=== PATIENT | male | born 1995 | race Hispanic/Latino ===

== ENCOUNTER 2020-08-14 01:02 | Emergency (ER) | payer MEDICAID, OTHER ==
[2020-08-14] MEDS ORDERED: PANTOPRAZOLE SODIUM 40 MG TABLET.DR ONE (01:37)
[2020-08-14] MEDS ORDERED: LIDOCAINE HCL 2% VISCOUS 15 ML UDCUP ONE (01:37)
[2020-08-14] MEDS ORDERED: MAG HYDROX/AL HYDROX/SIMETH ES 30 ML SUSP UDCUP ONE (01:37)
[2020-08-14] MEDS ORDERED: ONDANSETRON ODT 4 MG TAB ONE (01:38)
[2020-08-14 02:21] LABS: BASOPHILS % (AUTO) 0.5 % (0.0-5.0); EOSINOPHILS % (AUTO) 1.1 % (0.0-8.0); HEMATOCRIT 43.1 % (42-54); LYMPHOCYTES % (AUTO) 48.9 % (21.0-51.0); MEAN CORPUSCULAR HEMOGLOBIN 29.4 pg (27.0-33.0); MEAN CORPUSCULAR HGB CONC 35.5 g/dL (32.0-36.0); MEAN CORPUSCULAR VOLUME 82.9 fL (79-99); MONOCYTES % (AUTO) 6.6 % (3.0-13.0); NEUTROPHILS % (AUTO) 42.6 % (40.0-77.0); PLATELET COUNT (AUTO) 209 K/uL (130-400); RED CELL DISTRIBUTION WIDTH 12.4 % (11.0-15.5); WHITE BLOOD COUNT (AUTO) 6.5 K/uL (4.8-10.8)
[2020-08-14 02:38] LABS: CREATININE 0.9 mg/dL (0.5-1.5); POTASSIUM 3.4 mmol/L (3.5-5.1)
[2020-08-14 02:39] LABS: INR 0.95 (0.85-1.15); PARTIAL THROMBOPLASTIN TIME 26.9 SEC (26.3-35.5); PROTHROMBIN TIME 10.3 SEC (9.6-11.6)
[2020-08-14 02:42] LABS: ALBUMIN 4.2 g/dL (3.5-5.0); BILIRUBIN,TOTAL 0.4 mg/dL (0.2-1.0)
== END 2020-08-14 03:42 | disposition home or self-care (01) ==
LOC: EDH 01:02
DX: R06.00 Dyspnea, unspecified (principal); F43.0 Acute stress reaction; F41.9 Anxiety disorder, unspecified; E11.9 Type 2 diabetes mellitus without complications; Z88.0 Allergy status to penicillin; Z88.2 Allergy status to sulfonamides
CPT/HCPCS: 36415; 71046; 80053; 83690; 84484; 85025; 85610; 85730; 93005

== ENCOUNTER 2022-10-10 21:25 | Emergency (ER) | payer OTHER ==
[~2022-10-10] VITALS: Ht 182.9 cm; Wt 125.2 kg
[2022-10-10 21:39] VITALS: BP 151/88
[2022-10-10 23:11] LABS: BASOPHILS % (AUTO) 0.5 % (0.0-5.0); EOSINOPHILS % (AUTO) 0.8 % (0.0-8.0); HEMATOCRIT 46.4 % (42-54); LYMPHOCYTES % (AUTO) 33.3 % (21.0-51.0); MEAN CORPUSCULAR HEMOGLOBIN 28.6 pg (27.0-33.0); MEAN CORPUSCULAR HGB CONC 34.3 g/dL (32.0-36.0); MEAN CORPUSCULAR VOLUME 83.6 fL (79-99); MONOCYTES % (AUTO) 7.5 % (3.0-13.0); NEUTROPHILS % (AUTO) 57.5 % (40.0-77.0); PLATELET COUNT (AUTO) 272 K/uL (130-400); RED BLOOD CELL COUNT(AUTO) 5.55 MIL/uL (4.50-6.20); WHITE BLOOD COUNT (AUTO) 8.4 K/uL (4.8-10.8)
[2022-10-10] MEDS ORDERED: SULF1TAB42 PO (23:17)
[2022-10-10] MEDS ORDERED: CEPH500B PO (23:17)
[2022-10-10] MEDS ORDERED: LIDOCAINE HCL 1% 20 ML VIAL INJ SCH (23:30)
[2022-10-10 23:35] LABS: CREATININE 0.8 mg/dL (0.5-1.5); POTASSIUM 3.8 mmol/L (3.5-5.1)
[2022-10-10 23:39] LABS: ALBUMIN 4.1 g/dL (3.5-5.0); TOTAL PROTEIN, SERUM 8.4 g/dL (6.0-8.3)
== END 2022-10-10 23:53 | disposition home or self-care (01) ==
LOC: EDH 21:25
DX: L02.211 Cutaneous abscess of abdominal wall (principal); E11.9 Type 2 diabetes mellitus without complications; E78.00 Pure hypercholesterolemia, unspecified
CPT/HCPCS: 10060; 36415; 74176; 80053; 85025

== ENCOUNTER 2023-05-15 15:56 | Emergency (ER) | payer OTHER ==
[~2023-05-15] VITALS: Ht 182.9 cm; Wt 126.6 kg
[~2023-05-15 15:56] MED LIST: CEPH500B PO; SULF1TAB42 PO
[2023-05-15 16:27] LABS: BASOPHILS % (AUTO) 0.6 % (0.0-5.0); EOSINOPHILS % (AUTO) 0.8 % (0.0-8.0); LYMPHOCYTES % (AUTO) 43.4 % (21.0-51.0); MEAN CORPUSCULAR HEMOGLOBIN 29.1 pg (27.0-33.0); MEAN CORPUSCULAR HGB CONC 34.6 g/dL (32.0-36.0); MEAN CORPUSCULAR VOLUME 84.2 fL (79-99); MONOCYTES % (AUTO) 6.9 % (3.0-13.0); PLATELET COUNT (AUTO) 234 K/uL (130-400); RED BLOOD CELL COUNT(AUTO) 5.46 MIL/uL (4.50-6.20); RED CELL DISTRIBUTION WIDTH 12.1 % (11.0-15.5); WHITE BLOOD COUNT (AUTO) 7.2 K/uL (4.8-10.8)
[2023-05-15 16:40] LABS: APPEARANCE,URINE CLEAR (CLEAR); BILIRUBIN,URINE NEGATIVE (NEGATIVE); COLOR,URINE LIGHT-YELLOW (YELLOW); GLUCOSE, URINE (UA) >=1000 mg/dL (NEGATIVE); KETONES,URINE NEGATIVE (NEGATIVE); LEUKOCYTE ESTERASE ,URINE NEGATIVE Leu/uL (NEGATIVE); NITRATE,URINE NEGATIVE (NEGATIVE); OCCULT BLOOD,URINE NEGATIVE (NEGATIVE); PH,URINE 6.5 (5.0-8.0); PROTEIN,URINE NEGATIVE (NEGATIVE); UROBILINOGEN,URINE 0.2 mg/dL (0.2-1.0)
[2023-05-15 16:43] LABS: RBC,URINE 0-1 /HPF (0-1); SQUAMOUS EPITHELIAL CELL,UR RARE /HPF (0-2); WBC,URINE 0-1 /HPF (0-1)
[2023-05-15 16:47] LABS: CREATININE 0.8 mg/dL (0.5-1.5); POTASSIUM 3.9 mmol/L (3.5-5.1)
[2023-05-15 16:56] LABS: ALBUMIN 3.9 g/dL (3.5-5.0); MAGNESIUM 1.7 mg/dL (1.80-2.40); TOTAL PROTEIN, SERUM 8.1 g/dL (6.0-8.3)
[2023-05-15] MEDS ORDERED: MAGNESIUM OXIDE 400 MG TABLET PO SCH (18:30)
[2023-05-15] MEDS ORDERED: KETOROLAC 60 MG VIAL (30MG/ML) IM SCH (18:30)
[2023-05-15] MEDS ORDERED: IBUP-2076 PO (21:29)
[2023-05-15 21:36] VITALS: BP 145/74; PULSE 85; RESP 17; O2SAT 96
== END 2023-05-15 21:51 | disposition home or self-care (01) ==
LOC: EDH 15:56
DX: B34.9 Viral infection, unspecified (principal); R07.89 Other chest pain; E11.9 Type 2 diabetes mellitus without complications; E78.00 Pure hypercholesterolemia, unspecified; E66.9 Obesity, unspecified; Z68.37 Body mass index [BMI] 37.0-37.9, adult
CPT/HCPCS: 99285; 71045; 83735; 84484 ×2; 80053; 85025; 87804 ×2; 81001; 36415; 96372; 93005; J1885

== ENCOUNTER 2023-07-07 19:45 | Emergency (ER) | payer OTHER ==
[~2023-07-07] VITALS: Ht 182.9 cm; Wt 122.9 kg
[~2023-07-07 19:45] MED LIST changes: +IBUP-2076 PO
[2023-07-07 20:07] VITALS: BP 139/86; PULSE 79; RESP 18; O2SAT 98
[2023-07-07 21:08] LABS: BASOPHILS # (AUTO) 0.03 K/uL (0.00-0.20); BASOPHILS % (AUTO) 0.4 % (0.0-5.0); EOSINOPHILS # (AUTO) 0.07 K/uL (0.00-0.70); HEMATOCRIT 46.4 % (42-54); IMMATURE GRANULOCYTE ABSOLUTE 0.01 K/uL (0-1); LYMPHOCYTES # (AUTO) 2.5 K/uL (1.0-4.8); LYMPHOCYTES % (AUTO) 36.1 % (21.0-51.0); MEAN CORPUSCULAR HEMOGLOBIN 29.6 pg (27.0-33.0); MEAN CORPUSCULAR HGB CONC 35.1 g/dL (32.0-36.0); MEAN CORPUSCULAR VOLUME 84.2 fL (79-99); MONOCYTES # (AUTO) 0.5 K/uL (0.1-1.0); MONOCYTES % (AUTO) 7.5 % (3.0-13.0); NEUTROPHILS # (AUTO) 3.8 K/uL (1.8-7.7); NEUTROPHILS % (AUTO) 54.9 % (40.0-77.0); PLATELET COUNT (AUTO) 200 K/uL (130-400); RED BLOOD CELL COUNT(AUTO) 5.51 MIL/uL (4.50-6.20); RED CELL DISTRIBUTION WIDTH 12.2 % (11.0-15.5); WHITE BLOOD COUNT (AUTO) 6.9 K/uL (4.8-10.8)
[2023-07-07] MEDS ORDERED: CEPH500B PO (21:12)
[2023-07-07] MEDS ORDERED: SULF1TAB42 PO (21:12)
[2023-07-07] MEDS ORDERED: IBUP-2070 PO (21:13)
[2023-07-07 21:17] LABS: CREATININE 0.8 mg/dL (0.5-1.5); POTASSIUM 3.7 mmol/L (3.5-5.1)
[2023-07-07 21:22] LABS: BILIRUBIN,TOTAL 0.4 mg/dL (0.2-1.0); TOTAL PROTEIN, SERUM 8.2 g/dL (6.0-8.3)
[2023-07-07] MEDS ORDERED: INSULIN HUMULIN R 100 UNIT/ML 3ML ONE (21:27)
[2023-07-07] MEDS ORDERED: INSULIN HUMULIN R 100 UNIT/ML 3ML SQ ONE (21:30)
[2023-07-07 22:22] LABS: ERYTHROCYTE SEDIMENTATION RATE 15 MM/HR (0-15)
== END 2023-07-07 22:55 | disposition home or self-care (01) ==
LOC: EDH 19:45
DX: L03.116 Cellulitis of left lower limb (principal); I10 Essential (primary) hypertension; E11.9 Type 2 diabetes mellitus without complications; Z79.899 Other long term (current) drug therapy
CPT/HCPCS: 99284; 80053; 85025; 85651; 83605; 36415; 73552; 96372; J1815

== ENCOUNTER 2023-10-06 06:55 | Emergency (ER) | payer OTHER ==
[~2023-10-06] VITALS: Ht 182.9 cm; Wt 124.7 kg
[~2023-10-06 06:55] MED LIST changes: +IBUP-2070 PO
[2023-10-06] MEDS ORDERED: LACTATED RINGERS 1000ML 1,000 ML IV ONE (08:30)
[2023-10-06] MEDS ORDERED: METOCLOPRAMIDE 10 MG/2 ML VIAL IVP ONE (08:30)
[2023-10-06 08:41] LABS: BASOPHILS # (AUTO) 0.03 K/uL (0.00-0.20); BASOPHILS % (AUTO) 0.5 % (0.0-5.0); EOSINOPHILS # (AUTO) 0.04 K/uL (0.00-0.70); EOSINOPHILS % (AUTO) 0.7 % (0.0-8.0); HEMATOCRIT 44.6 % (42-54); IMMATURE GRANULOCYTE ABSOLUTE 0.01 K/uL (0-1); LYMPHOCYTES # (AUTO) 2.4 K/uL (1.0-4.8); MEAN CORPUSCULAR HEMOGLOBIN 29.9 pg (27.0-33.0); MEAN CORPUSCULAR HGB CONC 34.8 g/dL (32.0-36.0); MEAN CORPUSCULAR VOLUME 85.9 fL (79-99); MONOCYTES # (AUTO) 0.3 K/uL (0.1-1.0); MONOCYTES % (AUTO) 6.1 % (3.0-13.0); NEUTROPHILS # (AUTO) 2.8 K/uL (1.8-7.7); NEUTROPHILS % (AUTO) 50.5 % (40.0-77.0); PLATELET COUNT (AUTO) 197 K/uL (130-400); RED BLOOD CELL COUNT(AUTO) 5.19 MIL/uL (4.50-6.20); RED CELL DISTRIBUTION WIDTH 12.7 % (11.0-15.5); WHITE BLOOD COUNT (AUTO) 5.6 K/uL (4.8-10.8)
[2023-10-06 09:01] LABS: ALBUMIN 3.9 g/dL (3.5-5.0); BILIRUBIN,TOTAL 0.2 mg/dL (0.2-1.0); CREATININE 0.7 mg/dL (0.5-1.5); POTASSIUM 3.9 mmol/L (3.5-5.1); TOTAL PROTEIN, SERUM 7.3 g/dL (6.0-8.3)
[2023-10-06 09:08] LABS: MAGNESIUM 1.8 mg/dL (1.80-2.40); THYROID STIMULATING HORMONE 1.88 uIU/mL (0.36-3.74)
[2023-10-06 09:30] LABS: APPEARANCE,URINE CLEAR (CLEAR); BILIRUBIN,URINE NEGATIVE (NEGATIVE); COLOR,URINE COLORLESS (YELLOW); GLUCOSE, URINE (UA) >=1000 mg/dL (NEGATIVE); KETONES,URINE NEGATIVE (NEGATIVE); LEUKOCYTE ESTERASE ,URINE NEGATIVE Leu/uL (NEGATIVE); NITRATE,URINE NEGATIVE (NEGATIVE); OCCULT BLOOD,URINE NEGATIVE (NEGATIVE); PH,URINE 6.5 (5.0-8.0); PROTEIN,URINE NEGATIVE (NEGATIVE); UROBILINOGEN,URINE 0.2 mg/dL (0.2-1.0)
[2023-10-06 09:34] LABS: ADD UA MICROSCOPIC YES
[2023-10-06 09:38] LABS: BACTERIA,URINE RARE /HPF (None Seen); RBC,URINE 0-1 /HPF (0-1); SQUAMOUS EPITHELIAL CELL,UR RARE /HPF (0-2); WBC,URINE 0-1 /HPF (0-1)
[2023-10-06 10:30] VITALS: BP 140/76; PULSE 66; RESP 16; O2SAT 97
[2023-10-06] MEDS ORDERED: POLY17PO4 PO (10:57)
[2023-10-06] MEDS ORDERED: METO-296 PO (10:57)
== END 2023-10-06 11:14 | disposition home or self-care (01) ==
LOC: EDH 06:55
DX: K59.00 Constipation, unspecified (principal); E78.00 Pure hypercholesterolemia, unspecified; Z79.899 Other long term (current) drug therapy; Z98.890 Other specified postprocedural states
CPT/HCPCS: 99284; 96374; 96361; 84443; 83735; 80053; 83690; 85025; 81001; 36415; 74021; J7120; J2765

== ENCOUNTER 2023-11-16 12:56 | Emergency (ER) | payer OTHER ==
[~2023-11-16] VITALS: Ht 182.9 cm; Wt 122.5 kg
[~2023-11-16 12:56] MED LIST changes: +METO-296 PO; +POLY17PO4 PO
[2023-11-16 13:51] VITALS: BP 123/79; PULSE 88; RESP 14
[2023-11-16 14:16] LABS: RAPID GROUP A STREP negative (NEGATIVE)
[2023-11-16 14:30] LABS: INFLUENZA TYPE A Negative For Type A (NEGATIVE); INFLUENZA TYPE B Negative For Type B (NEGATIVE)
[2023-11-16 15:30] LABS: SARS-CoV-2, RNA, NAAT POSITIVE SARS CoV-2 (NEGATIVE)
[2023-11-16] MEDS ORDERED: BENZ-39 PO (16:21)
== END 2023-11-16 16:35 | disposition home or self-care (01) ==
LOC: EDH 12:56
DX: U07.1 COVID-19 (principal); E11.9 Type 2 diabetes mellitus without complications; E78.00 Pure hypercholesterolemia, unspecified; Z79.899 Other long term (current) drug therapy; Z98.890 Other specified postprocedural states
CPT/HCPCS: 87635; 87804; 87880

== ENCOUNTER 2025-04-04 20:46 | Emergency (ER) | payer BC ==
[~2025-04-04] VITALS: Ht 182.9 cm; Wt 124.7 kg
[~2025-04-04 20:46] MED LIST changes: +BENZ-39 PO
--- NOTE | 2025-04-04 20:53 | ERN ---
ED Note History of Present Illness Stated Complaint: HEADACHE, CHILLS, NAUSEA Chief Complaint: Flu Symptoms Time Seen by MD: 20:50 Time Seen by Midlevel: 20:50 Dictation: Mr. Lima is a 29 year old male with history of obesity, hyperlipidemia, and type II DM presented to the emergency department this evening for evaluation of flu symptoms. He states that approximately an hour after he got to work this evening he developed sudden onset of fatigue, general weakness, headache, nausea, and dizziness. He states that he feels dehydrated. He states that he has been tired all day with decreased appetite. He Denies fever, chills, shortness of breath, cough, chest pain, palpitations, edema, abdominal pain, vomiting, hematemesis, constipation, diarrhea, melena, hematochezia, dysuria,or focal weakness/paresthesia Allergies: Coded Allergies: Penicillins (Unverified Allergy, Unknown, 04/04/25) Sulfa (Sulfonamide Antibiotics) (Unverified Allergy, Unknown, 04/04/25) Home Meds Active Scripts Benzonatate (Tessalon Perles) 100 Mg Cap, 100 MG PO TID PRN for COUGH, #30 CAP Prov:YAYO WILLARD COMPUTER OPERATIONS SPECIALIST 11/16/23 Polyethylene Glycol 3350 (Miralax) 17 Gram Powd.pack, 17 GM PO DAILYDINNER for constipation, #30 PACKET 2 Refills Prov:MADELINE MCDOWELL Sr., MD 10/06/23 Metoclopramide HCl (Reglan) 10 Mg Tablet, 10 MG PO QID, #120 TAB 2 Refills Prov:MADELINE MCDOWELL Sr., MD 10/06/23 Ibuprofen (Ibuprofen) 600 Mg Tablet, 600 MG PO Q6H PRN for PAIN, #30 TAB Prov:BELINDA GUO 07/07/23 Cephalexin Monohydrate (Keflex) 500 Mg Cap, 500 MG PO QID for 7 Days, #28 CAP Prov:BELINDA GUO 07/07/23 Sulfamethoxazole/Trimethoprim (Bactrim Ds Tablet) 800 Mg-160 Mg Tablet, 1 TAB PO BID for 7 Days, #14 TAB 0 Refills Prov:BELINDA GUO 07/07/23 Ibuprofen (Ibuprofen) 400 Mg Tablet, 400 MG PO TID for body aches, #15 TAB 0 Refills Prov:LUDWIG SWARTZ COMPUTER OPERATIONS SPECIALIST 05/15/23 Sulfamethoxazole/Trimethoprim (Bactrim Ds Tablet) 1 Each Tablet, 1 TAB PO BID for 7 Days, #14 TAB 0 Refills Prov:BELINDA GUO V PATTERN GRADER CUTTER 10/10/22 Cephalexin Monohydrate (Keflex) 500 Mg Cap, 500 MG PO QID for 7 Days, #28 CAP Prov:BELINDA GUO V PATTERN GRADER CUTTER 10/10/22 Past Medical History Past Medical History: Diabetes-Type II, High Cholesterol Surgical History: Other Surgical History Other: LEFT EAR PSYCH History: no pertinent psych hx Family History: HTN Social History: Lives with family RN Note Reviewed/Agreed w/PFSH: Yes Review of System Dictation REVIEW OF SYSTEMS: CONSTITUTIONAL: Patient denies fevers, chills, sweats and weight changes. Reports fatigue and general weakness. He states that he feels dehydrated. EYES: Patient denies any visual symptoms. EARS, NOSE, AND THROAT: No difficulties with hearing. No symptoms of rhinitis or sore throat. CARDIOVASCULAR: Patient denies chest pains, palpitations, orthopnea and paroxysmal nocturnal dyspnea. RESPIRATORY: No dyspnea on exertion, no wheezing or cough. GI: No nausea, vomiting, diarrhea, constipation, abdominal pain, hematochezia or melena. Reported nausea and decreased appetite. : No urinary hesitancy or dribbling. No nocturia or urinary frequency. No abnormal urethral discharge. MUSCULOSKELETAL: No myalgias or arthralgias. NEUROLOGIC: No chronic headaches, no seizures. Patient denies numbness, tingling or weakness. Reports feeling dizzy. PSYCHIATRIC: Patient denies problems with mood disturbance. No problems with anxiety. ENDOCRINE: No excessive urination or excessive thirst. DERMATOLOGIC: Patient denies any rashes or skin changes Initial Vital Sign VS Vital Signs Date Time Temp Pulse Resp B/P (MAP) Pulse Ox O2 Delivery O2 Flow Rate FiO2 04/04/25 20:48 98.1 82 16 154/100 100 Room Air Physical Exam Dictation Vital signs: Reviewed. Afebrile Constitutional: No acute distress. Non-toxic appearing. Head/Face: Normocephalic, atraumatic. Eyes: Periorbital areas with no swelling, redness, or edema. Lids and lashes are normal. Conjunctival injection is absent. Sclera anicteric. Pupils equal, round, reactive to light. ENT: Pinnas intact and no signs of trauma or erythema. Ear canals clear and no discharge. TMs no erythema. No nasal discharge or bleeding noted. Oropharynx with no exudate, redness, swelling, masses, exudates, or evidence of obstruction. Uvula midline. Mucous membranes dry. Neck: Trachea midline, no masses palpated, and no cervical lymphadenopathy. No swelling. Supple, full range of motion. Chest/Axilla: No tenderness, no crepitus, no paradoxical movement, no retractions. Cardiovascular: Regular rate, regular rhythm, no murmur, no gallops. Symmetric pulses. No peripheral edema. Respiratory: Respirations even and unlabored. Lung sounds clear; no wheezes, rales or rhonchi. Room air SpO2 100% Gastrointestinal: Obese No distention is appreciated. Bowel sounds are normal. No mass or organomegaly . There is no tenderness. No rebound. No rigidity. No voluntary or involuntary guarding. No Shoemaker's sign. Neurological: Normal speech, gross motor function intact, gross sensory function intact. No focal weakness/Paresthesia. Musculoskeletal/Extremities: All extremities have full range of motion, no pain or tenderness on palpation. Symmetric pulses. Integumentary: Intact. Skin is normal color, warm and dry. Cap refill less than 2 seconds. Results (Laboratory/Radiology) Laboratory/Radiology Laboratory Tests Test 04/04/25 21:04 04/04/25 21:16 Influenza Type A Antigen Negative For Type A Influenza Type B Antigen Negative For Type B SARS-CoV-2, RNA, NAAT NEGATIVE SARS CoV-2 Group A Streptococcus Rapid negative (NEGATIVE) White Blood Count 6.6 K/uL (4.8-10.8) Red Blood Count 5.24 MIL/uL (4.50-6.20) Hemoglobin 15.7 g/dL (14.0-18.0) Hematocrit 44.4 % (42-54) Mean Corpuscular Volume 84.7 fL (79-99) Mean Corpuscular Hemoglobin 30.0 pg (27.0-33.0) Mean Corpuscular Hemoglobin Concent 35.4 g/dL (32.0-36.0) Red Cell Distribution Width 12.4 % (11.0-15.5) Platelet Count 186 K/uL (130-400) Mean Platelet Volume 11.0 fL (7.5-10.5) H Immature Granulocyte % (Auto) 0.5 % (0-1) Neutrophils (%) (Auto) 55.7 % (40.0-77.0) Lymphocytes (%) (Auto) 36.0 % (21.0-51.0) Monocytes (%) (Auto) 6.4 % (3.0-13.0) Eosinophils (%) (Auto) 0.9 % (0.0-8.0) Basophils (%) (Auto) 0.5 % (0.0-5.0) Neutrophils # (Auto) 3.7 K/uL (1.8-7.7) Lymphocytes # (Auto) 2.4 K/uL (1.0-4.8) Monocytes # (Auto) 0.4 K/uL (0.1-1.0) Eosinophils # (Auto) 0.06 K/uL (0.00-0.70) Basophils # (Auto) 0.03 K/uL (0.00-0.20) Absolute Immature Granulocyte (auto 0.03 K/uL (0-1) Nucleated Red Blood Cells 0.0 % (0.0-0.19) Urine Color LIGHT-YELLOW (YELLOW) Urine Appearance CLEAR (CLEAR) Urine pH 6.0 (5.0-8.0) Urine Specific [place] 1.046 (1.001-1.031) Urine Protein NEGATIVE mg/dL (NEGATIVE) Urine Glucose (UA) >=1000 mg/dL (NEGATIVE) H Urine Ketones NEGATIVE mg/dL (NEGATIVE) Urine Occult Blood NEGATIVE (NEGATIVE) Urine Nitrate NEGATIVE (NEGATIVE) Urine Bilirubin NEGATIVE mg/dL (NEGATIVE) Urine Urobilinogen 0.2 mg/dL (0.2-1.0) Urine Leukocyte Esterase NEGATIVE Alea/uL Urine RBC 0-1 /HPF (0-1) Urine WBC 0-1 /HPF (0-1) Urine Squamous Epithelial Cells RARE /HPF (0-2) Urine Bacteria None /HPF (None Seen) Urine Yeast RARE /HPF (None Seen) Sodium Level 134 mmol/L (136-145) L Potassium Level 4.0 mmol/L (3.5-5.1) Chloride Level 95 mmol/L (101-111) L Carbon Dioxide Level 31 mmol/L (21-32) Blood Urea Nitrogen 17 mg/dL (7-18) Creatinine 0.8 mg/dL (0.5-1.3) Glomerular Filtration Rate Calc 124 mL/min (>90) Random Glucose 276 mg/dL (70-105) H Total Calcium 8.9 mg/dL (8.5-10.1) Labs Reviewed?: Yes ED Course ED Course Orders Procedure Category Date Status Time Influenza Type A & B, LAB 04/04/25 Complete Rapid 20:51 Covid Rna Naat LAB 04/04/25 Complete 20:51 Rapid (Group A Strep) LAB 04/04/25 Complete 20:51 Cbc With Differential LAB 04/04/25 Complete 20:58 Basic Metabolic Panel LAB 04/04/25 Complete 20:58 Urinalysis Profile LAB 04/04/25 Complete 20:58 Ondansetron 4mg Inj PHA 04/04/25 Complete (Zofran 4mg Inj) 22:30 Ketorolac PHA 04/04/25 Complete Tromethamine 30mg/Ml 22:30 0.9%Nacl 1000ml (Ns PHA 04/04/25 Complete 1000ml) 22:30 Current Medications Medications (Trade) Dose Ordered Sig/Aashish Route PRN Reason Start Time Stop Time Status Last Admin Dose Admin Ketorolac Tromethamine (toRADol) 30 mg ONCE ONCE IVP 04/04/25 22:30 04/04/25 22:31 DC 04/04/25 22:23 Ondansetron HCl (zoFRAN 4MG INJ) 4 mg ONCE ONCE IVP 04/04/25 22:30 04/04/25 22:31 DC 04/04/25 22:23 Sodium Chloride 1,000 ml @ 0 mls/hr ONCE ONCE IV 04/04/25 22:30 04/04/25 22:31 DC 04/04/25 22:23 Vital Signs Date Time Temp Pulse Resp B/P (MAP) Pulse Ox O2 Delivery O2 Flow Rate FiO2 04/04/25 20:48 98.1 82 16 154/100 100 Room Air Uneventful ED course. Vital signs are stable; afebrile. Laboratory findings as noted below. Strep, COVID, and flu are negative. No elevation of WBCs. H&H are stable. Na/Cl 134/95 and glucose 276. While in the ED he received doses Toradol, Zofran, and NS 1000 mL IV as bolus. Discussed findings with patient and answered all questions. Medical Decision Making MDM MDM: Differential diagnosis: Gastroenteritis, viral illness, electrolyte derangement, dehydration, flu, COVID Rationale: Tests considered and ordered secondary to shared decision making include: Previous outside records reviewed: Old ER visits. Risk of complication and/or morbidity or mortality of patient management: None Medications-Per medication reconciliation Need for hospitalization: Patient does not meet criteria for hospitalization. Need for emergency major/minor surgery: No There are no social concerns with this patient. Prescription drug management: Zofran ODT Prescriptions will include symptomatic care Patient's prior external medical records from other ER visits were reviewed by me as indicated. Prior testing and results from previous visits were reviewed. Prior tests were taken into account with medical decision making and resource utilization, independent historian/historians were used to obtain complete medical history. I independently interpreted the test that were performed, results were reviewed by me and considered findings on radiology if ordered. Medical management and examination interpretation discussions were had by me with other qualified healthcare professionals as indicated for the patient's care. DX & DISP Disposition: Discharge Departure Impression: Primary Impression: Viral illness Additional Impression: Mild dehydration Condition: Stable Scripts Ondansetron (Ondansetron Odt) 4 Mg Tab.rapdis 4 MG PO Q6HPRN PRN for nausea, #15 TAB 0 Refills Prov: LUDWIG SWARTZ COMPUTER OPERATIONS SPECIALIST 04/04/25 Additional Instructions: Likely have a viral illness, which will can cause symptoms like nausea, fatigue, and poor appetite. Your labs are reassuring and your urine test showed no sign of infection. Your elevated blood sugar is likely due to illness related stress and dehydration. Continue to monitor your blood sugar closely, especially when you are not eating normally. Drink frequent small sips of water, electrolyte solutions or broth. Try bland foods like crackers, toast, rice, bananas, or applesauce as tolerated. Rest and allow your body time to recover. Take your usual diabetes medications. Monitor your blood sugar more frequently while sick; every 4-6 hours if possible. Return to the emergency department if you are unable to keep fluids down for more than 24 hours. Have dizziness, confusion, or weakness. Have signs of high blood sugar/DKA: Abdominal pain, vomiting, rapid breathing. Follow up with your primary care provider in the few days. Referrals: SELF,REFERRAL (PCP) Time of Disposition: 22:37 LUDWIG SWARTZ NP Apr 04, 2025 20:53
[2025-04-04 21:34] LABS: APPEARANCE,URINE CLEAR (CLEAR); BASOPHILS # (AUTO) 0.03 K/uL (0.00-0.20); BASOPHILS % (AUTO) 0.5 % (0.0-5.0); BILIRUBIN,URINE NEGATIVE (NEGATIVE); COLOR,URINE LIGHT-YELLOW (YELLOW); EOSINOPHILS # (AUTO) 0.06 K/uL (0.00-0.70); EOSINOPHILS % (AUTO) 0.9 % (0.0-8.0); GLUCOSE, URINE (UA) >=1000 mg/dL (NEGATIVE); HEMATOCRIT 44.4 % (42-54); IMMATURE GRANULOCYTE ABSOLUTE 0.03 K/uL (0-1); KETONES,URINE NEGATIVE (NEGATIVE); LEUKOCYTE ESTERASE ,URINE NEGATIVE Leu/uL (NEGATIVE); LYMPHOCYTES # (AUTO) 2.4 K/uL (1.0-4.8); MEAN CORPUSCULAR HGB CONC 35.4 g/dL (32.0-36.0); MEAN CORPUSCULAR VOLUME 84.7 fL (79-99); MONOCYTES # (AUTO) 0.4 K/uL (0.1-1.0); MONOCYTES % (AUTO) 6.4 % (3.0-13.0); NEUTROPHILS # (AUTO) 3.7 K/uL (1.8-7.7); NEUTROPHILS % (AUTO) 55.7 % (40.0-77.0); NITRATE,URINE NEGATIVE (NEGATIVE); OCCULT BLOOD,URINE NEGATIVE (NEGATIVE); PLATELET COUNT (AUTO) 186 K/uL (130-400); PROTEIN,URINE NEGATIVE (NEGATIVE); RED BLOOD CELL COUNT(AUTO) 5.24 MIL/uL (4.50-6.20); RED CELL DISTRIBUTION WIDTH 12.4 % (11.0-15.5); UROBILINOGEN,URINE 0.2 mg/dL (0.2-1.0); WHITE BLOOD COUNT (AUTO) 6.6 K/uL (4.8-10.8)
[2025-04-04 21:35] LABS: ADD UA MICROSCOPIC YES
[2025-04-04 21:36] LABS: RBC,URINE 0-1 /HPF (0-1); SQUAMOUS EPITHELIAL CELL,UR RARE /HPF (0-2); WBC,URINE 0-1 /HPF (0-1); YEAST,URINE BUDDING RARE /HPF (None Seen)
[2025-04-04 21:43] LABS: CREATININE 0.8 mg/dL (0.5-1.3)
[2025-04-04 21:55] LABS: SARS-CoV-2, RNA, NAAT NEGATIVE SARS CoV-2 (NEGATIVE)
[2025-04-04 22:00] LABS: INFLUENZA TYPE A Negative For Type A (NEGATIVE); INFLUENZA TYPE B Negative For Type B (NEGATIVE)
[2025-04-04 22:04] LABS: RAPID GROUP A STREP negative (NEGATIVE)
[2025-04-04] MEDS: ketOROlac 30MG VIAL (30MG/ML) IVP ONE (22:23)
[2025-04-04] MEDS: ondanSETRON 4MG INJ IVP ONE (22:23)
[2025-04-04] MEDS: 0.9%NACL 1000ML 1,000 ML IV ONE (22:23)
[2025-04-04] MEDS ORDERED: ONDA-243 PO (22:35)
[2025-04-04 23:01] VITALS: BP 130/61; PULSE 77; RESP 16; TEMP 98.1; O2SAT 98
== END 2025-04-04 23:17 | disposition home or self-care (01) ==
LOC: EDH 20:46
DX: B34.9 Viral infection, unspecified (principal); E86.0 Dehydration; E11.9 Type 2 diabetes mellitus without complications; E78.00 Pure hypercholesterolemia, unspecified; Z79.1 Long term (current) use of non-steroidal anti-inflammatories (NSAID); Z88.0 Allergy status to penicillin; Z88.2 Allergy status to sulfonamides; Z20.822 Contact with and (suspected) exposure to COVID-19
CPT/HCPCS: 99284; 96374; 87635; 96375; 80048; 85025; 87880; 87804 ×2; 81001; 36415; J1885; J7030; J2405